=== PATIENT | female | born 1995 | race Caucasian/White ===

== ENCOUNTER 2016-03-14 21:51 | Emergency (ER) | payer OTHER, MEDICAID ==
[2016-03-14] MEDS ORDERED: KETOROLAC 60 MG/2 ML VIAL IM ONE (23:51)
== END 2016-03-15 00:24 | disposition home or self-care (01) ==
LOC: ER 21:51
CPT/HCPCS: 81001; 81025; 87088; 87491; 87591; 87800; 96372